=== PATIENT | female | born 1990 | race Caucasian/White ===

== ENCOUNTER 2019-01-28 15:04 | Observation (INO) ==
[2019-01-28] MEDS ORDERED: KETOROLAC TROMETHAMINE 15 MG/ML VIAL IV STA (15:47)
[2019-01-28] MEDS ORDERED: ONDANSETRON INJ 2 MG/ML 2 ML VIAL IV STA (15:47)
[2019-01-28] MEDS ORDERED: ACETAMINOPHEN 1,000 MG/100 ML VIAL IV STA (15:47)
[2019-01-28] MEDS ORDERED: SODIUM CHLORIDE 0.9% 1000ML 1,000 ML IV SCH (16:00)
--- NOTE | 2019-01-28 16:09 | XRay Report ---
XR chest 1V portable CLINICAL HISTORY: Sepsis COMPARISON STUDY: No previous studies for comparison. FINDINGS: Lung volumes are normal. There is no pneumothorax or pleural effusion. There is no consolid ation or evidence for pulmonary edema. Cardiac size is normal. Mediastinal contours are normal. IMPRESSION: No acute cardiopulmonary findings. Electronically signed by: Samy Whiting M.D. 01/28/2019 4:08 PM
[2019-01-28 16:24] LABS: Basophils # (auto) 0.03 K/uL (0-0.2); Basophils % (auto) 0.1 %; Eosinophils # (auto) 0.01 K/uL (0-0.5); Hemoglobin 13.4 g/dL (12.0-16.0); Immature Granulocytes # (auto) 0.06 K/uL (0.00-0.02); Immature Granulocytes % (auto) 0.3 %; Lymphocytes # (auto) 1.13 K/uL (1.2-3.4); Lymphocytes % (auto) 5.1 %; Mean Corpuscular Hgb Conc 33.5 g/dL (32-36); Mean Corpuscular Volume 82.6 fL (80-100); Mean Platelet Volume 9.4 fL (7.4-10.4); Monocytes # (auto) 1.87 K/uL (0.11-0.59); Monocytes % (auto) 8.4 %; Neutrophils % (auto) 86.1 %; Platelet Count 246 K/uL (130-400); RDW Coefficient of Variation 13.6 % (11.5-14.5); RDW Standard Deviation 41.3 fL (36.4-46.3); Red Blood Count 4.84 M/uL (4.2-5.4)
[2019-01-28 16:36] LABS: Partial Thromboplastin Ratio 0.9; Partial Thromboplastin Time 25.1 Seconds (21.0-31.0); Prothrombin Time 10.7 Seconds (9.0-12.0)
[2019-01-28 16:41] LABS: Albumin Level 3.4 gm/dl (3.4-5.0); BUN Creatinine Ratio 6.3 (10-20); Calcium 8.7 mg/dl (8.5-10.1); Creatinine Clr Calc Pharmacy 94.2 ml/min; Est GFR (African American) 103.7; Est GFR (Non-African American) 89.4; Potassium 3.5 mmol/L (3.5-5.1)
[2019-01-28 16:44] LABS: Albumin Globulin Ratio 0.8 (0.9-2); Bilirubin,Total 0.9 mg/dl (0.2-1); Globulin 4.3 gm/dl (2.5-4.0); Total Protein 7.7 gm/dl (6.4-8.2)
[2019-01-28 17:04] LABS: Appearance Urine Clear (Clear); Bacteria Urine Automated Negative (Negative); Bilirubin Urine Negative (Negative); Cast Urine Automated 0 /lpf (0-5); Color Urine Yellow; Glucose Urine UA Negative (Negative); Ketones Urine 2+ (Negative); Leukocyte Esterase Urine Trace (Negative); Nitrite Urine Negative (Negative); Protein Urine Negative (Negative); Specific Gravity Urine 1.009 (1.000-1.030); Urobilinogen Urine Negative (Negative); pH Urine 5.5 (4.5-7.5)
[2019-01-28 17:11] LABS: Procalcitonin 0.14 ng/ml (0-0.5)
[2019-01-28] MEDS ORDERED: SODIUM CHLORIDE 0.9% 1000ML 1,000 ML IV ONE ×2 (17:32→19:56)
--- NOTE | 2019-01-28 18:32 | Ultrasound Report ---
RENAL ULTRASOUND CLINICAL HISTORY: back pain, urinary sx, fever COMPARISON STUDY: None. TECHNIQUE: Sonography of the kidneys and the urinary bladder was performed. FINDINGS: The right kidney measures 11.7 x 5.7 x 5.1 cm and the left measures 11.6 x 4.7 x 4.5 cm. Th ere is no hydronephrosis. There is slight prominence of the right renal pelvis. A calculi or masses a re identified. Renal echogenicity, size and cortical thickness are normal. Both ureteral jets were id entified. IMPRESSION: Slight prominence of the right renal pelvis without definite hydronephrosis. Electronically signed by: Samy Whiting M.D. 01/28/2019 6:30 PM
[2019-01-28] MEDS ORDERED: cefTRIAXone SODIUM 1,000 MG/50 ML BAG IV STA (18:35)
[2019-01-28] MEDS ORDERED: AZITHROMYCIN 250 MG TAB PO ONE (18:54)
[2019-01-28] MEDS ORDERED: IOVERSOL 100ml IV PRN (19:36)
--- NOTE | 2019-01-28 19:46 | CT Scan Report ---
ABDOMEN AND PELVIS CT WITH IV CONTRAST CT DOSE: 568.19 mGycm HISTORY: lower abd pain, vag discharge, fever, ?PID TECHNIQUE: Multiaxial CT images of the abdomen and pelvis were performed following the use of intrave nous contrast. A dose lowering technique was utilized adhering to the principles of ALARA. COMPARISON STUDY: None. FINDINGS: Patchy groundglass densities within the right lung base posteriorly suggestive of mild depe ndent changes. The left lung is clear. No pneumoperitoneum. No pneumatosis. No fractures within the v isualized osseous structures. The liver, gallbladder, pancreas, spleen, adrenal glands, and kidneys a re unremarkable. No hydronephrosis. No retroperitoneal lymphadenopathy. The bladder, uterus, and ovar ies are within normal limits. Trace pelvic free fluid. No inflammatory changes seen within the pelvis . No bowel wall thickening or obstruction. Normal appendix. IMPRESSION: 1. No bowel wall thickening or obstruction. 2. Normal appendix. 3. Trace pelvic free fluid. This is likely physiologic. 4. No inflammatory change seen within the pelvis. Electronically signed by: Rebel Castillo M.D. 01/28/2019 7:45 PM
[2019-01-28 20:38] LABS: Hematocrit (blood only) 38.4 % (37-47); Hemoglobin 12.7 g/dL (12.0-16.0); Mean Corpuscular Hgb Conc 33.1 g/dL (32-36); Mean Corpuscular Volume 83.8 fL (80-100); Mean Platelet Volume 9.7 fL (7.4-10.4); Platelet Count 244 K/uL (130-400); RDW Coefficient of Variation 13.7 % (11.5-14.5); RDW Standard Deviation 41.5 fL (36.4-46.3); Red Blood Count 4.58 M/uL (4.2-5.4); White Blood Count 23.92 K/uL (4.8-10.8)
[2019-01-28 20:54] LABS: Pregnancy Test, Serum Negative (Negative)
--- NOTE | 2019-01-28 21:58 | History & Physical Report ---
Date of Service January 28, 2019 Assessment & Plan (1) Acute febrile illness: She presented with the fever and chills for the last 2 days Did not have any fever in the emergency room but her white count was elevated and she was tachycardic The condition could be due to viral syndrome Acute infection secondary to tonsillitis/UTI/pyelonephritis/sexually transmitted disease have to be ruled out Admitted to medical floor for continuation of care Present on Admission?: Yes (2) UTI (urinary tract infection): UA was not suggestive of UTI but did have clinical symptoms of UTI Urine will be sent for culture Has back pain and ultrasound evidence of possible right pyelonephritis Started on intravenous Rocephin and will continue until the culture is back (3) Recurrent tonsillitis: Tonsils are enlarged Group A strep test is negative Ceftriaxone will cover for any tonsillitis for now (4) Vaginal discharge: For the last 2 days foul-smelling Received Augmentin about 2 weeks back Tried [id number] antifungal medication Trichomoniasis have been negative Chlamydia and gonococcal test are pending Covered with 1 g azithromycin orally DVT prophylaxis SCDs and increase ambulation CODE STATUS Full Discussed with the patient and family members History of Present Illness Chief Complaint: Fever with chills, sore throat dysuria and vaginal discomfort with unusual drainage for couple of days Primary Care Provider: Scot Watson MD She is 28 years old female without significant past medical history except chronic tonsillitis apparently has had a tonsillar infection 3 weeks ago and got Augmentin for 10 days. She has been complaining of dysuria for the last 2 days and she has been complaining of pain following sex about 2 days ago as well, she also complained to have a sore throat for the same period. With occasional chills and pain in the ER as well. She has dysuria with the back pain and questionable stomach upset with nausea but no vomiting. Denies any diarrhea as well. She was seen in the clinic at [facility] today and with the above symptoms she was advised to come to the emergency room for further evaluation. In the ER she was afebrile but noted to have tachycardia with increased white count to more than 20,000, aberrant UA test did not suggest any UTI and CT scan of the abdomen and pelvis was unremarkable and ultrasound of the renal system did show possible right pyelo nephritis. Her throat swab was negative for group a beta strep , vagina fluid Gram stain negative for trichomonas and Gram stain and culture cultures are pending. She received 1 g of azithromycin x1 and will continue with intravenous ceftriaxone 1 g daily for now. She was admitted to medical floor for continuation of care. Allergies Allergy/AdvReac Type Severity Reaction Status Date / Time No Known Allergies Allergy Unverified 01/28/19 15:51 Home Medications Home Medications Medication Instructions Recorded Confirmed Type ibuprofen 200 mg PO Q6H PRN 01/28/19 01/28/19 History levonorgestrel-ethinyl estrad 1 tab PO DAILY 01/28/19 01/28/19 History [Aviane] Past Med/Surg History Medical History Recurrent tonsillitis Yeast infection Social History Preferred Language: Faroese Feels Safe at Home: Yes Smoking Status: Never smoker Review of Systems Review of Systems: All systems reviewed & are unremarkable except as noted in HPI & below Constitutional: + chills, + sweats, + body aches and + fatigue Musculoskeletal: Lower back pain without radiation Physical Exam Physical Exam: Anxious with some distress at rest Constitutional: + ill appearing Eyes: PERRL, conjunctivae normal, anicteric sclerae ENMT: Mouth: + oropharynx abnormality (Enlarged tonsils with tender tonsillar nodes) Neck: trachea midline, no thyromegaly Respiratory: normal respiratory effort Cardiovascular: Rate/Rhythm: regular rate and regular rhythm Heart Sounds: + murmur (2/6 precordium) Gastrointestinal (Abdomen): Inspection/Auscultation: abdomen normal to inspection Musculoskeletal: Minimal tenderness lower back. Renal angles were nontender Neurologic: PERRL, EOMI, accommodation nl, no face palsy, no dysarthria Psychiatric: A+Ox3, euthymic affect Genitourinary: no CVA tenderness Lymphatic: no cervical or axillary lymphadenopathy Results & Data Vital Signs (Past 12 Hours) Vital Signs Temp Pulse Pulse Resp BP BP Pulse Ox 01/28/19 21:30 36.8 C 131 H 16 123/70 95 01/28/19 20:30 117 H 18 108/44 L 98 01/28/19 19:40 105 H 18 115/75 98 01/28/19 18:22 37.0 C 114 H 22 110/58 L 98 01/28/19 16:50 98 01/28/19 15:19 38.3 C H 131 H 17 112/70 99 Laboratory Results Short CBC 01/28/19 01/28/19 Range/Units 16:07 20:12 WBC 22.20 H 23.92 H (4.8-10.8) K/uL Hgb 13.4 12.7 (12.0-16.0) g/dL Hct 40.0 38.4 (37-47) % Plt Count 246 244 (130-400) K/uL BMP 01/28/19 16:07 Sodium 137 Potassium 3.5 Chloride 106 Carbon Dioxide 24 BUN 6 L Creatinine 0.89 Glucose 97 Calcium 8.7 Liver Function 01/28/19 Range/Units 16:07 Total Bilirubin 0.9 (0.2-1) mg/dl AST 9 L (15-37) U/L ALT 17 (12-78) U/L Alkaline Phosphatase 48 (45-117) U/L Albumin 3.4 (3.4-5.0) gm/dl Urine 01/28/19 Range/Units 16:40 Urine Color Yellow Urine Appearance Clear (Clear) Urine pH 5.5 (4.5-7.5) Ur Specific [place] 1.009 (1.000-1.030) Urine Protein Negative (Negative) Urine Glucose (UA) Negative (Negative) Medications Administered Current Inpatient Medications Ceftriaxone Sodium 2,000 mg/ (Dextrose) 70 mls @ 100 mls/hr IV Q24H H[facility]; Protocol Stop: 02/03/19 19:59 Sodium Chloride (Nss 1000ml) 1,000 mls @ 80 mls/hr IV .[id number] [place] Stop: 01/30/19 11:29 Ioversol (Optiray 320 100ml) 89 ml IV ONCE PRN PRN Reason: Interaction Checking Stop: 02/01/19 19:35 Last Admin: 01/28/19 19:36 Dose: 89 ml Documented by:
[2019-01-29] MEDS: SODIUM CHLORIDE 0.9% 1000ML 1,000 ML IV SCH ×3 (00:16→21:01)
[2019-01-29] MEDS ORDERED: ACETAMINOPHEN 325 MG TAB PO PRN (00:55)
[2019-01-29] MEDS ORDERED: MoRPHine SULFATE 2 MG/ML CARP IV PRN (00:55)
[2019-01-29] MEDS ORDERED: SODIUM CHLORIDE 0.9% 500 ML IV SCH (01:00)
[2019-01-29] MEDS ORDERED: cefTRIAXone SODIUM 1,000 MG/50 ML BAG IV STA (01:20)
[2019-01-29 06:14] LABS: Basophils # (auto) 0.02 K/uL (0-0.2); Basophils % (auto) 0.1 %; Eosinophils # (auto) 0.01 K/uL (0-0.5); Eosinophils % (auto) 0.1 %; Hematocrit (blood only) 33.5 % (37-47); Hemoglobin 11.3 g/dL (12.0-16.0); Immature Granulocytes # (auto) 0.05 K/uL (0.00-0.02); Immature Granulocytes % (auto) 0.3 %; Lymphocytes % (auto) 11.3 %; Mean Corpuscular Hgb Conc 33.7 g/dL (32-36); Mean Corpuscular Volume 83.5 fL (80-100); Mean Platelet Volume 9.4 fL (7.4-10.4); Monocytes # (auto) 1.84 K/uL (0.11-0.59); Monocytes % (auto) 10.9 %; Neutrophils # (auto) 13.03 K/uL (1.4-6.5); Neutrophils % (auto) 77.3 %; Platelet Count 223 K/uL (130-400); RDW Coefficient of Variation 13.9 % (11.5-14.5); RDW Standard Deviation 42.6 fL (36.4-46.3); Red Blood Count 4.01 M/uL (4.2-5.4); White Blood Count 16.85 K/uL (4.8-10.8)
[2019-01-29 06:44] LABS: BUN Creatinine Ratio 4.4 (10-20); Calcium 7.9 mg/dl (8.5-10.1); Creatinine Clr Calc Pharmacy 114.9 ml/min; Est GFR (African American) 131.7; Est GFR (Non-African American) 113.7; Potassium 3.5 mmol/L (3.5-5.1)
--- NOTE | 2019-01-29 11:38 | Hospitalist Progress Note ---
Date of Service January 29, 2019 Assessment & Plan (1) Acute febrile illness: She presented with the fever and chills for the last 2 days White count was elevated and she was tachycardic The condition could be due to viral syndrome Acute infection secondary to tonsillitis/UTI/pyelonephritis/sexually transmitted disease have to be ruled out (2) UTI (urinary tract infection): UA was not suggestive of UTI but did have clinical symptoms of UTI Urine culture Has back pain and ultrasound shows evidence of possible right pyelonephritis Started on intravenous Rocephin and will continue until the culture is back WBCs trending down (3) Recurrent tonsillitis: Tonsils are enlarged, cryptic with pus in the crypts Group A strep test is negative Ceftriaxone will cover for any tonsillitis for now (4) Vaginal discharge: For the last 2 days foul-smelling Received Augmentin about 2 weeks back Tried [id number] antifungal medication Trichomoniasis have been negative Chlamydia and gonococcal test are pending Covered with 1g azithromycin orally DVT prophylaxis SCDs and increase ambulation ROS-No Headache, No Visual Changes, No Nausea, No Vomiting, No Fever, No Chills, +Neck Pain, no Stiffness, No Chest Pain, No Palpitations, No SOB, No NICHOLAS, No Cough, No Sputum, No Wheezing, No Abdominal Pain, No Diarrhea, No Hematemesis, No Hemoptysis, No Unexpected Weight Loss, No Flank pain, No Melena, No Hematochezia, No Frequency, No Urgency, No Burning, No Hematuria, No Rashes, No Diaphoresis. Appetite is Normal Physical Exam Gen-AAO x 3, NAD, febrile Head-NCAT, EOMI, PERRLA, Anicteric Sclera, positive enlarged EGD with exudates in the crypts no Neck-Supple, No JVD, No Thyromegaly, No Masses, +LAD, No Bruits Lungs-Clear to Auscultation Bilaterally, No Rales, No Rhonchi, No Wheezing, No Crepitus Chest-No S4, +S1, +S2, No S3, No Murmurs, No Rubs, No Gallops, No Ectopy Abdomen-Soft, Bowel Sounds Present, Non Tender, Non Distended, No Hepatomegaly, No Splenomegaly, No Palpable Masses, No Rebound, No Rigidity, No Guarding Musculoskeletal-Full Range of Motion Bilaterally, No CVAT Extremities-No Cyanosis, No Clubbing, No Edema Nuero-Cranial Nerves II-XII grossly intact, Motor WNL, DTRs WNL, Strength WNL, Non Focal Psych-Normal Mood Results & Data Vital Signs (Past 12 Hours) Vital Signs Temp Pulse Resp BP Pulse Ox 01/29/19 11:10 36.9 C 105 H 20 108/70 98 01/29/19 06:12 36.7 C 113 H 21 110/60 100 Current Diagnoses Acute recurrent tonsillitis, unspecified (01/28/19) Urinary tract infection, site not specified (01/28/19) Other specified noninflammatory disorders of vagina (01/28/19) Fever, unspecified (01/28/19) Allergies No Known Allergies Allergy (Unverified 01/28/19 15:51) Height/Weight/Isolation Height 5 ft 5 in Weight 70.3 kg Chemistry 01/28/19 01/29/19 16:07 05:51 Sodium 137 143 Potassium 3.5 3.5 Chloride 106 114 H Carbon Dioxide 24 21 Anion Gap 7.0 8.0 BUN 6 L 3 L Creatinine 0.89 0.73 Glucose 97 112 H Urinalysis 01/28/19 16:40 Urine Color Yellow Urine Appearance Clear Urine pH 5.5 Ur Specific [place] 1.009 Urine Protein Negative Urine Glucose (UA) Negative Urine Ketones 2+ H Urine Blood 2+ H Urine Nitrite Negative Urine Bilirubin Negative Microbiology 01/28/19 Unknown Throat Group A Streptococcus Rapid Screen - Final Specimen negative for Group A Beta Strep by rapid method. Culture report to follow. 01/28/19 Unknown Throat Group A Beta-Hemolytic Strep Cult - Preliminary No beta strep isolated to date. 01/28/19 18:45 Vaginal Gram Stain - Final 01/28/19 18:45 Vaginal Genital Culture - Pending 01/28/19 16:40 Urine,Clean Catch Urine Culture - Pending 01/28/19 18:45 Vaginal Trichomonas Preparation - Final 01/28/19 16:28 Blood Aerobic Blood Culture - Pending 01/28/19 16:28 Blood Anaerobic Blood Culture - Pending 01/28/19 16:07 Blood Aerobic Blood Culture - Pending 01/28/19 16:07 Blood Anaerobic Blood Culture - Pending
[2019-01-29] MEDS ORDERED: cefTRIAXone SODIUM 2,000 MG in DEXTROSE 5% 50 ML IV SCH (20:00)
[2019-01-29] MEDS ORDERED: AVIANE PO SCH (21:00)
[2019-01-30 00:25] LABS: Rapid Plasma Reagin Nonreactive (Nonreactive)
--- NOTE | 2019-01-30 07:02 | Discharge Summary ---
Date of Service January 30, 2019 Admission HPI Per Admitting Provider She is 28 years old female without significant past medical history except chronic tonsillitis apparently has had a tonsillar infection 3 weeks ago and got Augmentin for 10 days. She has been complaining of dysuria for the last 2 days and she has been complaining of pain following sex about 2 days ago as well, she also complained to have a sore throat for the same period. With occasional chills and pain in the ER as well. She has dysuria with the back pain and questionable stomach upset with nausea but no vomiting. Denies any diarrhea as well. She was seen in the clinic at [facility] today and with the above symptoms she was advised to come to the emergency room for further evaluation. In the ER she was afebrile but noted to have tachycardia with increased white count to more than 20,000, aberrant UA test did not suggest any UTI and CT scan of the abdomen and pelvis was unremarkable and ultrasound of the renal system did show possible right pyelo nephritis. Her throat swab was negative for group a beta strep , vagina fluid Gram stain negative for trichomonas and Gram stain and culture cultures are pending. She received 1 g of azithromycin x1 and will continue with intravenous ceftriaxone 1 g daily for now. She was admitted to medical floor for continuation of care. She responded well to Abx and grew out dany in the Vagina-Will DC on Diflucan and Augmentin Admission Exam Per Admitting Provider Physical Exam: Anxious with some distress at rest Constitutional: + ill appearing Eyes: PERRL, conjunctivae normal, anicteric sclerae ENMT: Mouth: + oropharynx abnormality (Enlarged tonsils with tender tonsillar nodes) Neck: trachea midline, no thyromegaly Respiratory: normal respiratory effort Cardiovascular: Rate/Rhythm: regular rate and regular rhythm Heart Sounds: + murmur (2/6 precordium) Gastrointestinal (Abdomen): Inspection/Auscultation: abdomen normal to inspection Musculoskeletal: Minimal tenderness lower back. Renal angles were nontender Neurologic: PERRL, EOMI, accommodation nl, no face palsy, no dysarthria Psychiatric: A+Ox3, euthymic affect Genitourinary: no CVA tenderness Lymphatic: no cervical or axillary lymphadenopathy Principal Diagnosis Acute Early Sepsis Tonsitis Vaginal Adny UTI Discharge Exam ROS-No Headache, No Visual Changes, No Nausea, No Vomiting, No Fever, No Chills, No Neck Pain or Stiffness, No Chest Pain, No Palpitations, No SOB, No NICHOLAS, No Cough, No Sputum, No Wheezing, No Abdominal Pain, No Diarrhea, No Hematemesis, No Hemoptysis, No Unexpected Weight Loss, No Flank pain, No Melena, No Hematochezia, No Frequency, No Urgency, No Burning, No Hematuria, No Rashes, No Diaphoresis. Appetite is Normal Physical Exam Gen-AAO x 3, NAD, Afebrile Head-NCAT, EOMI, PERRLA, Anicteric Sclera, No Posterior Pharyngeal Erythema Neck-Supple, No JVD, No Thyromegaly, No Masses, No LAD, No Bruits Lungs-Clear to Auscultation Bilaterally, No Rales, No Rhonchi, No Wheezing, No Crepitus Chest-No S4, +S1, +S2, No S3, No Murmurs, No Rubs, No Gallops, No Ectopy Abdomen-Soft, Bowel Sounds Present, Non Tender, Non Distended, No Hepatomegaly, No Splenomegaly, No Palpable Masses, No Rebound, No Rigidity, No Guarding Musculoskeletal-Full Range of Motion Bilaterally, No CVAT Extremities-No Cyanosis, No Clubbing, No Edema Nuero-Cranial Nerves II-XII grossly intact, Motor WNL, DTRs WNL, Strength WNL, Non Focal Psych-Normal Mood Discharge Data Allergies Allergy/AdvReac Type Severity Reaction Status Date / Time No Known Allergies Allergy Unverified 01/28/19 15:51 Consultations 01/28/19 21:18 ED Decision to Admit Stat Ordered Studies 01/28/19 16:10 US renal/blad retro comp Stat 01/28/19 19:03 CT abd pelvis IV con only Stat Current Diagnoses Acute recurrent tonsillitis, unspecified (01/28/19) Urinary tract infection, site not specified (01/28/19) Other specified noninflammatory disorders of vagina (01/28/19) Fever, unspecified (01/28/19) Allergies No Known Allergies Allergy (Unverified 01/28/19 15:51) Height/Weight/Isolation Height 5 ft 5 in Weight 70.3 kg Chemistry 01/28/19 01/29/19 16:07 05:51 Sodium 137 143 Potassium 3.5 3.5 Chloride 106 114 H Carbon Dioxide 24 21 Anion Gap 7.0 8.0 BUN 6 L 3 L Creatinine 0.89 0.73 Glucose 97 112 H Urinalysis 01/28/19 16:40 Urine Color Yellow Urine Appearance Clear Urine pH 5.5 Ur Specific [place] 1.009 Urine Protein Negative Urine Glucose (UA) Negative Urine Ketones 2+ H Urine Blood 2+ H Urine Nitrite Negative Urine Bilirubin Negative Microbiology 01/28/19 16:07 Blood Aerobic Blood Culture - Preliminary No growth in Aerobic bottle after 24 hours. 01/28/19 16:07 Blood Anaerobic Blood Culture - Preliminary No growth in Anaerobic bottle after 24 hours. 01/28/19 16:28 Blood Aerobic Blood Culture - Preliminary No growth in Aerobic bottle after 24 hours. 01/28/19 16:28 Blood Anaerobic Blood Culture - Preliminary No growth in Anaerobic bottle after 24 hours. 01/28/19 16:40 Urine,Clean Catch Urine Culture - Preliminary Pin-point growth present, reincubating. 01/28/19 18:45 Vaginal Gram Stain - Final 01/28/19 18:45 Vaginal Genital Culture - Preliminary Dany albicans 01/28/19 Unknown Throat Group A Streptococcus Rapid Screen - Final Specimen negative for Group A Beta Strep by rapid method. Culture report to follow. 01/28/19 Unknown Throat Group A Beta-Hemolytic Strep Cult - Preliminary No beta strep isolated to date. 01/28/19 18:45 Vaginal Trichomonas Preparation - Final Hospital Course (1) Sepsis: Acute early sepsis POA sec to UTI and Tonsilitis (2) Acute febrile illness: She presented with the fever and chills for the last 2 days White count was elevated and she was tachycardic Acute infection secondary to tonsillitis/UTI/pyelonephritis No STDs (3) UTI (urinary tract infection): UA was not suggestive of UTI but did have clinical symptoms of UTI Urine culture neg Has back pain and ultrasound shows evidence of possible right pyelonephritis Started on intravenous Rocephin and will continue until the culture is back WBCs trending down DC on Augmentin x 7 days, and Diflucan for Dany of tract (4) Recurrent tonsillitis: Tonsils were enlarged, cryptic with pus in the crypts Group A strep test is negative Augmentin on DC ENT Referral OP (5) Vaginal discharge: 2 days foul-smelling Received Augmentin about 2 weeks back Tried [id number] antifungal medication Trichomoniasis have been negative Chlamydia and gonococcal test are pending Covered with 1g azithromycin orally Dany on Vag Cx DC Home today ROS-No Headache, No Visual Changes, No Nausea, No Vomiting, No Fever, No Chills, +Neck Pain, no Stiffness, No Chest Pain, No Palpitations, No SOB, No NICHOLAS, No Cough, No Sputum, No Wheezing, No Abdominal Pain, No Diarrhea, No Hematemesis, No Hemoptysis, No Unexpected Weight Loss, No Flank pain, No Melena, No Hematochezia, No Frequency, No Urgency, No Burning, No Hematuria, No Rashes, No Diaphoresis. Appetite is Normal Physical Exam Gen-AAO x 3, NAD, febrile Head-NCAT, EOMI, PERRLA, Anicteric Sclera, positive enlarged EGD with exudates in the crypts no Neck-Supple, No JVD, No Thyromegaly, No Masses, +LAD, No Bruits Lungs-Clear to Auscultation Bilaterally, No Rales, No Rhonchi, No Wheezing, No Crepitus Chest-No S4, +S1, +S2, No S3, No Murmurs, No Rubs, No Gallops, No Ectopy Abdomen-Soft, Bowel Sounds Present, Non Tender, Non Distended, No Hepatomegaly, No Splenomegaly, No Palpable Masses, No Rebound, No Rigidity, No Guarding Musculoskeletal-Full Range of Motion Bilaterally, No CVAT Extremities-No Cyanosis, No Clubbing, No Edema Nuero-Cranial Nerves II-XII grossly intact, Motor WNL, DTRs WNL, Strength WNL, Non Focal Psych-Normal Mood Total Time Total Time Spent Total Time Spent (In Minutes): 40 mins Total Time Includes: Examination of the Patient, Discharge Planning, Medication Reconciliation and Communication With Other Providers Discharge Plan Discharge Items Patient Disposition: Home - Self-Care Reason For Visit: POSSIBLE UTI,ACUTE RECURRENT TONSILLITIS Discharge Diagnosis: Acute Early Sepsis Tonsitis Vaginal Adny UTI Condition: Good Discharge Goals: Improve disease control Activity: Resume your previous activity Bathing: No limitations Sexual Activity: When tolerated Exercise/Sports: As tolerated Driving/Machine Use: No limitations Weightbearing: Left weightbearing and Right weightbearing Non-emergency contact: Primary Care Provider Follow-up/Referrals: Scot Watson MD [Primary Care Provider] - Diet: Regular Addtl Provider Instructions: Needs ENT referral if not yet done for recurrent tonsilitis. Prescriptions: New acetaminophen [Mapap (acetaminophen)] 325 mg Tablet 650 mg PO Q6H PRN (Reason: fever or pain) Qty: 60 RF: 0 fluconazole [Diflucan] 150 mg tablet 150 mg PO Q3D 3 Days Qty: 3 RF: 0 amoxicillin-pot clavulanate [Augmentin] 875-125 mg tablet 1 tab PO Q12H Qty: 14 RF: 0 Continued levonorgestrel-ethinyl estrad [Aviane] 0.1-20 mg-mcg tablet 1 tab PO DAILY RF: 0 ibuprofen 200 mg Tablet 200 mg PO Q6H PRN (Reason: Pain) RF: 0 Stand-Alone Forms: [facility], Work/School Release (Inpt) Discharge Orders: Discharge Order (Routine); Ordered 01/30/19 Ordered By: Rambo Torres Admission Data Admit Date/Time: 01/28/19 22:05 Attending Provider: Rambo Torres Admit Provider: Chyna Nuno Primary Care Provider: Scot Watson Other Providers: Seth Palm Service: Medical Other Pending Studies at Discharge: No
[2019-01-30 07:32] VITALS: BP 105/72; PULSE 78; TEMP 98.2; O2SAT 98
[2019-01-30] MEDS ORDERED: FLUCONAZOLE 100 MG TAB PO SCH (09:00)
--- NOTE | 2019-01-30 11:21 | Emergency Department Note ---
Entered by Laurie Haro acting as a scribe for Chana Hutchinson DO History of Present Illness General Chief complaint: Fever Stated complaint: FEVER,SWOLLEN TONSILS,UPSET STOMACH Time Seen by Provider: 01/28/19 15:22 Source: patient Limitations: no limitations History of Present Illness Onset (ago): day(s) 3 Location: abdomen Radiation: back Pain Consistency: + other (worsening) Maximum Pain Intensity: 6 Quality: + other (pressure ) Associated symptoms: + denies other symptoms (obvious swelling and rash in her v aginal area), + fever/chills, + nausea/vomiting (complains of nausea, denies vomiting) and + other (The patient complains of swollen tonsils, ear pain, dysuria, and unusual vaginal discharge); no rash The patient is a 28 year old female who presents to the ED complaining of worsening abdominal pain that began 3 days ago. The patient describes the abdominal pain as a "pressure" in her lower abdomen." She states that the pain began radiating to her lower back yesterday. The patient complains of nausea, a fever of 101, swollen tonsils, ear pain, dysuria, and unusual vaginal discharge. She states that her discharge has been thicker, yellow, and odorous. She denies any obvious swelling and rash in her vaginal area. The patient reports that her last sexual encounter was 3 days ago, and she notes that the pain began after the intercourse. She denies any history of gynecological issues and UTI. The patient notes a history of chronic tonsillar issues and yeast infections. Patient did recently finish a course of amoxicillin for presumed strep pharyngitis approximately 2 weeks ago. Home Medications Home Medications Medication Instructions Recorded Confirmed Type ibuprofen 200 mg PO Q6H PRN 01/28/19 01/28/19 History levonorgestrel-ethinyl estrad 1 tab PO DAILY 01/28/19 01/28/19 History [Aviane] acetaminophen [Mapap 650 mg PO Q6H PRN #60 tab 01/30/19 Rx (acetaminophen)] amoxicillin-pot clavulanate 1 tab PO Q12H #14 tab 01/30/19 Rx [Augmentin] fluconazole [Diflucan] 150 mg PO Q3D 3 Days #3 tab 01/30/19 Rx Allergies Allergy/AdvReac Type Severity Reaction Status Date / Time No Known Allergies Allergy Unverified 01/28/19 15:51 Past Med/Surg History Social History Preferred Language: Setswana Communication Ability: Effective Beliefs That Will Affect Care: None Current Living Situation: Family Other Information That Helps Us Care for You: No Feels Safe at Home: Yes Smoking Status: Never smoker Hx Alcohol Use: Yes (socially) Alcohol type: wine Hx Substance Use: No Review of Systems See HPI for pertinent positives & negatives. and A total of 10 systems reviewed and were otherwise negative Physical Exam Vital Signs Vital Signs - 24 hr 01/28/19 15:19 01/28/19 16:50 01/28/19 18:22 Temperature 100.9 F H 98.6 F Temperature Source Oral Oral Sepsis Recent Fever Within 48 Hours Yes Sepsis New/Unexplained Change in Mental Status No Sepsis Action Taken by Nursing No Action Required Pulse Rate 131 H Pulse Rate [Left Finger] 114 H Pulse Rhythm [Left Finger] Regular Respiratory Rate 17 22 Respiratory Effort / Characteristics Non-Labored Non-Labored Respiratory Depth Normal Normal Respiratory Pattern Regular Regular Blood Pressure 112/70 Blood Pressure [Left Arm] 110/58 L Blood Pressure Mean 84 Blood Pressure Mean [Left Arm] 75 Blood Pressure Position Sitting Pulse Oximetry 99 98 98 Oxygen Delivery Method Room Air Room Air Room Air 01/28/19 19:40 01/28/19 20:30 Temperature Temperature Source Sepsis Recent Fever Within 48 Hours Sepsis New/Unexplained Change in Mental Status Sepsis Action Taken by Nursing Pulse Rate Pulse Rate [Left Finger] 105 H 117 H Pulse Rhythm [Left Finger] Respiratory Rate 18 18 Respiratory Effort / Characteristics Respiratory Depth Respiratory Pattern Blood Pressure Blood Pressure [Left Arm] 115/75 108/44 L Blood Pressure Mean Blood Pressure Mean [Left Arm] 88 65 Blood Pressure Position Pulse Oximetry 98 98 Oxygen Delivery Method GENERAL: alert, mildly ill-appearing, well nourished, no distress, non-toxic. Uncomfortable appearing. EYE EXAM: normal conjunctiva, PERRL and EOM's grossly intact OROPHARYNX: no erythema, lips, buccal mucosa, and tongue normal and mucous membranes are moist. Uvula midline. Bilateral tonsil hypertrophy with multiple exudates. No soft palate edema. No trismus. NECK: supple, no nuchal rigidity, no adenopathy, non-tender, no stridor LUNGS: Clear to auscultation. Normal chest wall mechanics, no w/r/r HEART: no murmurs, S1 normal and S2 normal ABDOMEN: abdomen soft, non-tender, normo-active bowel sounds, no masses, no rebound or guarding. BACK: Back is symmetrical on inspection and there is no deformity, no midline tenderness, no CVA tenderness. No reproducible low back pain on palpation. SKIN: no rashes and no bruising, no petechiae UPPER EXTREMITIES: upper extremities are grossly normal. FROM, nml pulses b/l. LOWER EXTREMITIES: No pitting edema. FROM, nml pulses b/l. NEURO EXAM: Normal sensorium, cranial nerves II-XII grossly intact, normal speech, no gross weakness of arms, no gross weakness of legs. PELVIC EXAM: Normal external genitalia. No rash or lesions notes including no herpetic lesions. No inguinal lymphadenopathy. There was a small amount of faint yellow discharge noted in the vaginal vault. No bleeding. No evidence of cervi citis. No other abnormality noted to the vaginal prado. No CMT. No adnexal tenderness on manual exam. No foreign body or evidence of trauma to vaginal vault. Course 1538: The patient was evaluated in room C08. A complete history and physical exam was performed. 1852: I reevaluated the patient and performed a pelvic exam. 2033: I reassessed the patient. She stated that she was feeling better. Discussed repeat CBC given elevation initially and risks associated with significant leukocytosis despite her symptom medic improvement. 2114: Patient's white blood cell count is higher compared to initial and I discussed this with her bedside. Discussed my concern for continued infection and possible differential diagnosis despite clear etiology at this time. She is agreeable with plan for additional inpatient evaluation. I spoke with Dr. Palm, [facility], about the patients case. He will further evaluate the patient. Consultations Consultation #1: [id number]: I spoke with Dr. Palm, [facility], about the patients case. He will further evaluate the patient. Time: 21:15 Administered Medications Discontinued Medications Acetaminophen (Tylenol) 650 mg PO Q6H PRN PRN Reason: Pain or Fever Stop: 02/28/19 00:59 Last Admin: 01/29/19 01:43 Dose: 650 mg Documented by: [id number] Azithromycin (Zithromax) 1,000 mg PO NOW ONE Stop: 01/28/19 18:55 Last Admin: 01/28/19 19:44 Dose: 1,000 mg Documented by: [id number] Fluconazole (Diflucan) 200 mg PO QAM [facility] Stop: 02/09/19 08:59 Last Admin: 01/30/19 08:09 Dose: 200 mg Documented by: [id number] Acetaminophen (Ofirmev) 1,000 mg in 100 mls @ 400 mls/hr IV NOW STA Stop: 01/28/19 16:01 Last Infusion: 01/28/19 16:56 Dose: 0 mls/hr Documented by: [id number] Admin: 01/28/19 16:42 Dose: 400 mls/hr Documented by: [id number] Sodium Chloride (Nss 1000ml) 1,000 mls @ 999 mls/hr IV .Q1H1M [facility] Stop: 01/28/19 17:00 Last Infusion: 01/28/19 17:49 Dose: 0 mls/hr Documented by: [id number] Admin: 01/28/19 16:44 Dose: 999 mls/hr Documented by: [id number] Sodium Chloride (Nss 1000ml) 1,000 mls @ 999 mls/hr IV .Q1H1M ONE Stop: 01/28/19 18:32 Last Infusion: 01/28/19 19:44 Dose: 0 mls/hr Documented by: [id number] Admin: 01/28/19 18:19 Dose: 999 mls/hr Documented by: [id number] Ceftriaxone Sodium (Rocephin) 1,000 mg in 50 mls @ 100 mls/hr IV NOW STA Stop: 01/28/19 19:04 Last Infusion: 01/28/19 19:44 Dose: 0 mls/hr Documented by: [id number] Admin: 01/28/19 18:55 Dose: 100 mls/hr Documented by: [id number] Sodium Chloride (Nss 1000ml) 1,000 mls @ 999 mls/hr IV .Q1H1M ONE Stop: 01/28/19 20:56 Last Infusion: 01/29/19 15:26 Dose: 0 mls/hr Documented by: [id number] Admin: 01/28/19 20:26 Dose: 999 mls/hr Documented by: [id number] Ceftriaxone Sodium 2,000 mg/ (Dextrose) 70 mls @ 100 mls/hr IV Q24H HOLLEY; Protocol Stop: 02/03/19 19:59 Last Infusion: 01/29/19 21:38 Dose: 0 mls/hr Documented by: [id number] Admin: 01/29/19 20:56 Dose: 100 mls/hr Documented by: [id number] Sodium Chloride (Nss 1000ml) 1,000 mls @ 100 mls/hr IV .Q10H [facility] Stop: 01/30/19 03:59 Last Admin: 01/29/19 21:01 Dose: 80 mls/hr Documented by: [id number] Infusion: 01/29/19 21:01 Dose: 80 mls/hr Documented by: [id number] Admin: 01/29/19 13:12 Dose: 80 mls/hr Documented by: [id number] Infusion: 01/29/19 12:46 Dose: 80 mls/hr Documented by: [id number] Admin: 01/29/19 00:16 Dose: 80 mls/hr Documented by: [id number] Sodium Chloride (Nss) 500 mls @ 500 mls/hr IV .Q1H [facility] Stop: 01/29/19 01:59 Last Infusion: 01/29/19 02:45 Dose: 0 mls/hr Documented by: [id number] Admin: 01/29/19 01:44 Dose: 500 mls/hr Documented by: [id number] Ceftriaxone Sodium (Rocephin) 1,000 mg in 50 mls @ 100 mls/hr IV NOW STA Stop: 01/29/19 01:49 Last Infusion: 01/29/19 02:25 Dose: 0 mls/hr Documented by: [id number] Admin: 01/29/19 01:50 Dose: 100 mls/hr Documented by: [id number] Ioversol (Optiray 320 100ml) 89 ml IV ONCE PRN PRN Reason: Interaction Checking Stop: 02/01/19 19:35 Last Admin: 01/28/19 19:36 Dose: 89 ml Documented by: [id number] Ketorolac Tromethamine (Toradol) 15 mg IV NOW STA Stop: 01/28/19 15:48 Last Admin: 01/28/19 16:42 Dose: 15 mg Documented by: [id number] Miscellaneous (Order Awaiting Action) 1 ea N/A QS [facility] Stop: 02/28/19 07:59 Last Admin: 01/29/19 10:12 Dose: Not Given Documented by: [id number] Miscellaneous (Patient's Own Oral Contraceptive) 1 ea PO HS H[facility] Stop: 02/28/19 20:59 Last Admin: 01/29/19 20:56 Dose: 1 ea Documented by: [id number] Morphine Sulfate (Morphine Sulfate) 2 mg IV Q3H PRN PRN Reason: Pain Stop: 02/12/19 00:54 Last Admin: 01/29/19 01:43 Dose: 2 mg Documented by: [id number] Ondansetron HCl (Zofran) 4 mg IV NOW STA Stop: 01/28/19 15:48 Last Admin: 01/28/19 16:42 Dose: 4 mg Documented by: [id number] Medical Decision Making Differential Diagnosis Differential diagnoses includes but is not limited to gastritis, peptic ulcer disease, GERD, gallbladder disease, pancreatitis, small bowel obstruction, acute coronary syndrome, pericarditis, ischemic bowel, irritable bowel disease, irritable bowel syndrome, appendicitis, diverticulitis, malignancy, hernia, urinary tract infection, torsion, /ectopic , perforation, t rauma, infectious. Medical Records Attestation: I reviewed the patient's medical records. Home Medications Current Medication List: was personally reviewed by me Laboratory Data Attestation: I reviewed the patient's lab results. Result diagrams: 01/29/19 05:51 01/29/19 05:51 Lab Results 01/28/19 01/28/19 01/28/19 Range/Units 16:07 16:07 16:07 WBC 22.20 H (4.8-10.8) K/uL RBC 4.84 (4.2-5.4) M/uL Hgb 13.4 (12.0-16.0) g/dL Hct 40.0 (37-47) % MCV 82.6 (80-100) fL MCH 27.7 (25-34) pg MCHC 33.5 (32-36) g/dL RDW Std Deviation 41.3 (36.4-46.3) fL RDW Coeff of Kerry 13.6 (11.5-14.5) % Plt Count 246 (130-400) K/uL MPV 9.4 (7.4-10.4) fL Immature Gran % (Auto) 0.3 % Neut % (Auto) 86.1 % Lymph % (Auto) 5.1 % [place] % (Auto) 8.4 % Eos % (Auto) 0.0 % Baso % (Auto) 0.1 % Immature Gran # (Auto) 0.06 H (0.00-0.02) K/uL Neut # (Auto) 19.10 H (1.4-6.5) K/uL Lymph # (Auto) 1.13 L (1.2-3.4) K/uL [place] # (Auto) 1.87 H (0.11-0.59) K/uL Eos # (Auto) 0.01 (0-0.5) K/uL Baso # (Auto) 0.03 (0-0.2) K/uL PT 10.7 (9.0-12.0) Seconds INR 1.0 (0.9-1.1) APTT 25.1 (21.0-31.0) Seconds PTT Ratio 0.9 Sodium 137 (136-145) mmol/L Potassium 3.5 (3.5-5.1) mmol/L Chloride 106 (98-107) mmol/L Carbon Dioxide 24 (21-32) mmol/L Anion Gap 7.0 (3-11) BUN 6 L (7-18) mg/dl Creatinine 0.89 (0.6-1.2) mg/dl Est Cr Clr Drug Dosing 94.2 ml/min Est GFR ( Amer) 103.7 Est GFR (Non-Af Amer) 89.4 BUN/Creatinine Ratio 6.3 L (10-20) Glucose 97 (70-99) mg/dl POC Lactic Acid Erik (0.90-1.70) mmol/L Calcium 8.7 (8.5-10.1) mg/dl Total Bilirubin 0.9 (0.2-1) mg/dl AST 9 L (15-37) U/L ALT 17 (12-78) U/L Alkaline Phosphatase 48 (45-117) U/L Total Protein 7.7 (6.4-8.2) gm/dl Albumin 3.4 (3.4-5.0) gm/dl Globulin 4.3 H (2.5-4.0) gm/dl Albumin/Globulin Ratio 0.8 L (0.9-2) Procalcitonin (0-0.5) ng/ml HCG, Qual (Negative) Urine Color Urine Appearance (Clear) Urine pH (4.5-7.5) Ur Specific Clio (1.000-1.030) Urine Protein (Negative) Urine Glucose (UA) (Negative) Urine Ketones (Negative) Urine Blood (Negative) Urine Nitrite (Negative) Urine Bilirubin (Negative) Urine Urobilinogen (Negative) Ur Leukocyte Esterase (Negative) Urine WBC (Auto) (0-5) /hpf Urine RBC (Auto) (0-4) /hpf U Hyaline Cast (Auto) (0-5) /lpf U Epithel Cells (Auto) (0-5) /lpf Urine Bacteria (Auto) (Negative) RPR (Nonreactive) 01/28/19 01/28/19 01/28/19 Range/Units 16:07 16:22 16:40 WBC (4.8-10.8) K/uL RBC (4.2-5.4) M/uL Hgb (12.0-16.0) g/dL Hct (37-47) % MCV (80-100) fL MCH (25-34) pg MCHC (32-36) g/dL RDW Std Deviation (36.4-46.3) fL RDW Coeff of Kerry (11.5-14.5) % Plt Count (130-400) K/uL MPV (7.4-10.4) fL Immature Gran % (Auto) % Neut % (Auto) % Lymph % (Auto) % [place] % (Auto) % Eos % (Auto) % Baso % (Auto) % Immature Gran # (Auto) (0.00-0.02) K/uL Neut # (Auto) (1.4-6.5) K/uL Lymph # (Auto) (1.2-3.4) K/uL [place] # (Auto) (0.11-0.59) K/uL Eos # (Auto) (0-0.5) K/uL Baso # (Auto) (0-0.2) K/uL PT (9.0-12.0) Seconds INR (0.9-1.1) APTT (21.0-31.0) Seconds PTT Ratio Sodium (136-145) mmol/L Potassium (3.5-5.1) mmol/L Chloride (98-107) mmol/L Carbon Dioxide (21-32) mmol/L Anion Gap (3-11) BUN (7-18) mg/dl Creatinine (0.6-1.2) mg/dl Est Cr Clr Drug Dosing ml/min Est GFR ( Amer) Est GFR (Non-Af Amer) BUN/Creatinine Ratio (10-20) Glucose (70-99) mg/dl POC Lactic Acid Erik 0.85 L (0.90-1.70) mmol/L Calcium (8.5-10.1) mg/dl Total Bilirubin (0.2-1) mg/dl AST (15-37) U/L ALT (12-78) U/L Alkaline Phosphatase (45-117) U/L Total Protein (6.4-8.2) gm/dl Albumin (3.4-5.0) gm/dl Globulin (2.5-4.0) gm/dl Albumin/Globulin Ratio (0.9-2) Procalcitonin 0.14 (0-0.5) ng/ml HCG, Qual (Negative) Urine Color Yellow Urine Appearance Clear (Clear) Urine pH 5.5 (4.5-7.5) Ur Specific Clio 1.009 (1.000-1.030) Urine Protein Negative (Negative) Urine Glucose (UA) Negative (Negative) Urine Ketones 2+ H (Negative) Urine Blood 2+ H (Negative) Urine Nitrite Negative (Negative) Urine Bilirubin Negative (Negative) Urine Urobilinogen Negative (Negative) Ur Leukocyte Esterase Trace H (Negative) Urine WBC (Auto) 1-5 (0-5) /hpf Urine RBC (Auto) 5-10 H (0-4) /hpf U Hyaline Cast (Auto) 0 (0-5) /lpf U Epithel Cells (Auto) 10-20 H (0-5) /lpf Urine Bacteria (Auto) Negative (Negative) RPR Nonreactive (Nonreactive) 01/28/19 01/28/19 Range/Units 20:12 20:12 WBC 23.92 H (4.8-10.8) K/uL RBC 4.58 (4.2-5.4) M/uL Hgb 12.7 (12.0-16.0) g/dL Hct 38.4 (37-47) % MCV 83.8 (80-100) fL MCH 27.7 (25-34) pg MCHC 33.1 (32-36) g/dL RDW Std Deviation 41.5 (36.4-46.3) fL RDW Coeff of Kerry 13.7 (11.5-14.5) % Plt Count 244 (130-400) K/uL MPV 9.7 (7.4-10.4) fL Immature Gran % (Auto) % Neut % (Auto) % Lymph % (Auto) % [place] % (Auto) % Eos % (Auto) % Baso % (Auto) % Immature Gran # (Auto) (0.00-0.02) K/uL Neut # (Auto) (1.4-6.5) K/uL Lymph # (Auto) (1.2-3.4) K/uL [place] # (Auto) (0.11-0.59) K/uL Eos # (Auto) (0-0.5) K/uL Baso # (Auto) (0-0.2) K/uL PT (9.0-12.0) Seconds INR (0.9-1.1) APTT (21.0-31.0) Seconds PTT Ratio Sodium (136-145) mmol/L Potassium (3.5-5.1) mmol/L Chloride (98-107) mmol/L Carbon Dioxide (21-32) mmol/L Anion Gap (3-11) BUN (7-18) mg/dl Creatinine (0.6-1.2) mg/dl Est Cr Clr Drug Dosing ml/min Est GFR ( Amer) Est GFR (Non-Af Amer) BUN/Creatinine Ratio (10-20) Glucose (70-99) mg/dl POC Lactic Acid Erik (0.90-1.70) mmol/L Calcium (8.5-10.1) mg/dl Total Bilirubin (0.2-1) mg/dl AST (15-37) U/L ALT (12-78) U/L Alkaline Phosphatase (45-117) U/L Total Protein (6.4-8.2) gm/dl Albumin (3.4-5.0) gm/dl Globulin (2.5-4.0) gm/dl Albumin/Globulin Ratio (0.9-2) Procalcitonin (0-0.5) ng/ml HCG, Qual Negative (Negative) Urine Color Urine Appearance (Clear) Urine pH (4.5-7.5) Ur Specific Clio (1.000-1.030) Urine Protein (Negative) Urine Glucose (UA) (Negative) Urine Ketones (Negative) Urine Blood (Negative) Urine Nitrite (Negative) Urine Bilirubin (Negative) Urine Urobilinogen (Negative) Ur Leukocyte Esterase (Negative) Urine WBC (Auto) (0-5) /hpf Urine RBC (Auto) (0-4) /hpf U Hyaline Cast (Auto) (0-5) /lpf U Epithel Cells (Auto) (0-5) /lpf Urine Bacteria (Auto) (Negative) RPR (Nonreactive) Imaging Data Radiologist's Impression: Radiology results as stated below per my review and the radiologist's interpretation: XR chest 1V portable CLINICAL HISTORY: Sepsis COMPARISON STUDY: No previous studies for comparison. FINDINGS: Lung volumes are normal. There is no pneumothorax or pleural effusion. There is no consolidation or evidence for pulmonary edema. Cardiac size is normal. Mediastinal contours are normal. IMPRESSION: No acute cardiopulmonary findings. Electronically signed by: Samy Whiting M.D. 01/28/2019 4:08 PM RENAL ULTRASOUND CLINICAL HISTORY: back pain, urinary sx, fever COMPARISON STUDY: None. TECHNIQUE: Sonography of the kidneys and the urinary bladder was performed. FINDINGS: The right kidney measures 11.7 x 5.7 x 5.1 cm and the left measures 11.6 x 4.7 x 4.5 cm. There is no hydronephrosis. There is slight prominence of the right renal pelvis. A calculi or masses are identified. Renal echogenicity, size and cortical thickness are normal. Both ureteral jets were identified. IMPRESSION: Slight prominence of the right renal pelvis without definite hydronephrosis. Electronically signed by: Samy Whiting M.D. 01/28/2019 6:30 PM ABDOMEN AND PELVIS CT WITH IV CONTRAST CT DOSE: 568.19 mGycm HISTORY: lower abd pain, vag discharge, fever, ?PID TECHNIQUE: Multiaxial CT images of the abdomen and pelvis were performed following the use of intravenous contrast. A dose lowering technique was utilized adhering to the principles of ALARA. COMPARISON STUDY: None. FINDINGS: Patchy groundglass densities within the right lung base posteriorly suggestive of mild dependent changes. The left lung is clear. No pneumoperitoneum. No pneumatosis. No fractures within the visualized osseous structures. The liver, gallbladder, pancreas, spleen, adrenal glands, and kidneys are unremarkable. No hydronephrosis. No retroperitoneal lymphadenopathy. The bladder, uterus, and ovaries are within normal limits. Trace pelvic free fluid. No inflammatory changes seen within the pelvis. No bowel wall thickening or obstruction. Normal appendix. IMPRESSION: 1. No bowel wall thickening or obstruction. 2. Normal appendix. 3. Trace pelvic free fluid. This is likely physiologic. 4. No inflammatory change seen within the pelvis. Electronically signed by: Rebel Castillo M.D. 01/28/2019 7:45 PM ECG Data Attestation: I personally reviewed and interpreted this ECG as follows: Indication: abdominal pain Rate (beats per minute): 123 Rhythm: sinus tachycardia Findings: + other (normal axis, normal intervals, no other acute ischemic change notes) and + T-wave inversion (in lead 3) Blood Pressure Blood Pressure Findings: Normal blood pressure Blood Pressure Disposition: did not require urgent referral MDM Narrative Patient presented here ill-appearing initial concern for possible ascending UTI/pyelonephritis versus PID versus other intra-abdominal pathology. Patient with no prior history of UTI or other gynecologic pathology, no prior history of STI. Patient found to have significant leukocytosis and combined with initial labs sepsis was considered. Patient's lactic acid and procalcitonin were reassuring. Strep swab negative despite impressive tonsil exam at bedside. Patient's tachycardia improved with treatment of fever as well as rehydration. Patient did have improvement but not complete resolution of her lower abdominal and low back pain. Pelvic exam was also performed given patient's reported abnormal discharge. Culture sent. No evidence on pelvic exam of cervicitis or PID however given relatively new sexual partner recently, culture sent as a precaution and I discussed empiric treatment with the patient. Given my initial concern for pyelonephritis, patient had already received 1 g IV Rocephin which would cover for pyelonephritis, STI (in combination with azithromycin which was later added), or occult strep pharyngitis. Initially renal ultrasound performed which was not strongly suggestive of pyelonephritis and after UA not strongly suggestive of infection, discussed with patient pursuing additional imaging to rule out other intra-abdominal pathology including PID. CT of the patient's abdomen and pelvis was reassuring and patient began to report improvement after additional fluids and medication. Given my concern for her initial appearance I discussed with patient repeat CBC to see if her leukocytosis had begun to impro ve as if perhaps there was a component of stress reaction. Patient's leukocytosis in fact worsened. I discussed all the results, my concerns, differential diagnosis again with patient and her mother bedside. Patient was in agreement with plan to pursue additional inpatient treatment. Case was di scussed with hospitalist. Impression & Plan Sepsis, Vaginal discharge, Hypertrophy of tonsils, Dysuria, Abdominal pain, Back pain Critical Care Time I have personally spent 40 minutes of critical care time in the direct management of this patient. This includes bedside care, interpretation of diagnostic studies, and testing, discussion with consultants, patient, and family members, and other required patient management activities. This 40 minutes is in excess of all separately billable procedures. Critical Care Time: Yes Total Critical Care Time: 40 Discharge Plan Visit Data *Final* Discharge Date/Time: 01/28/19 22:45 Chief Complaint: Fever Stated Complaint: FEVER,SWOLLEN TONSILS,UPSET STOMACH ED Provider: Chana Hutchinson Discharge Problem: Sepsis, Vaginal discharge, Hypertrophy of tonsils, Dysuria, Abdominal pain, Back pain Patient Disposition: Admitted As Inpatient Condition: Good Discharge Instructions Interventions: ED Discharge Assessment Last Done: 01/28/19 22:45 Discharge Problem: Sepsis Qualifiers: Sepsis type: sepsis due to unspecified organism Qualified Code(s): A41.9 - Sepsis, unspecified organism Abdominal pain Qualifiers: Abdominal location: lower abdomen, unspecified Qualified Code(s): R10.30 - Lower abdominal pain, unspecified Back pain Qualifiers: Back pain location: low back pain Chronicity: acute Back pain laterality: bilateral Sciatica presence: without sciatica Qualified Code(s): M54.5 - Low back pain The scribe's documentation has been prepared under my direction and personally reviewed by me in its entirety. I confirm that the note above accurately reflects all work, treatment, procedures, and medical decision making performed by me.
[2019-01-30 16:30] LABS: Chlamydia Trach RNA NOT DETECTED (NOT DETECTED); GC (Neis gonorrhoeae) RNA NOT DETECTED (NOT DETECTED)
== END 2019-01-30 10:21 | disposition home or self-care (01) ==
LOC: 4E 15:04 → ED 15:04 → 4E 22:45